=== PATIENT | female | born 2000 | race Caucasian/White ===

== ENCOUNTER 2020-05-07 13:51 | Emergency (ER) | payer SELFPAY ==
[~2020-05-07] VITALS: Ht 152.4 cm; Wt 63.6 kg
[2020-05-07 13:56] VITALS: BP 120/81; TEMP 98.6
[2020-05-07 15:36] VITALS: PULSE 82
== END 2020-05-07 15:37 | disposition home or self-care (01) ==
LOC: COL.ER 13:51
DX: S06.0X0A Concussion without loss of consciousness, initial encounter (principal); F17.200 Nicotine dependence, unspecified, uncomplicated; X50.1XXA Overexertion from prolonged static or awkward postures, initial encounter; Y93.43 Activity, gymnastics; Y92.39 Other specified sports and athletic area as the place of occurrence of the external cause

== ENCOUNTER → 2020-08-30 | Outpatient (CLI) | payer OTHER, BC | LOC: COL.RAD 07:39 | DX: O99.891 Other specified diseases and conditions complicating pregnancy (principal); N32.89 Other specified disorders of bladder; Z3A.12 12 weeks gestation of pregnancy | CPT/HCPCS: Q9967 ==